=== PATIENT | male | born 1960 | race Caucasian/White ===

== ENCOUNTER → 2020-12-20 09:39 | Outpatient (BNVA) | payer MEDICARE, MEDICAID, SELFPAY | PROVIDERS: Family Provider Physician Assistant; PCP Physician Assistant Medical; Visit Provider Anesthesiology Pain Medicine | DX: G89.29 Other chronic pain (principal); M54.12 Radiculopathy, cervical region; M50.90 Cervical disc disorder, unspecified, unspecified cervical region; F17.210 Nicotine dependence, cigarettes, uncomplicated | CPT/HCPCS: 99205 ==

== ENCOUNTER 2021-01-15 15:10 | Outpatient (CLI) | payer MEDICARE, MEDICAID, SELFPAY ==
--- NOTE | 2021-01-15 15:26 | MR_ITS ---
WS: [id number] MRI CERVICAL SPINE NONCONTRAST TECHNIQUE: Sagittal T1, T2 and STIR imaging. Axial T2, gradient, and fiesta imaging. CLINICAL INFORMATION: M54.12 - Radiculopathy, cervical region COMPARISON: February 2010 FINDINGS: Normal cervical alignment. Mild/moderate central canal stenosis in the mid cervical spine C3-C5. Cord signal is normal. C2-C3: Mild left and no significant right foraminal narrowing. Mild facet arthropathy. Spinal canal i s patent. C3-C4: Mild disc osteophytic ridging. Mild central canal stenosis. Moderate left greater than right b fatimah foraminal narrowing. Moderate facet arthropathy. C4-C5: Mild disc osteophyte complex with central disc osteophyte protrusion. Moderate central canal s tenosis. Slight indentation on cervical cord. Moderate to severe bilateral bony foraminal narrowing w ith moderate facet arthropathy. C5-C6: Disc osteophyte complex with endplate ridging. Broad-based central disc osteophyte protrusion with indentation on the cervical cord and mild central canal stenosis. Moderate to severe right and m oderate left bony foraminal narrowing. Moderate facet arthropathy. C6-C7: Disc osteophyte complex with slight effacement of ventral thecal sac. Mild central canal steno sis. Moderate to severe bilateral bony foraminal narrowing with osteophytic ridging and facet arthrop athy. C7-T1: Mild disc osteophyte complex with endplate ridging. Spinal canal is patent. Mild bilateral bon y foraminal narrowing. Small amount of edema in the left C4-5 articulating facets and right C3-4 articulating facets with a small amount of periarticular edema likely inflammatory or degenerative. Visualized brain stem structures: Normal. Prevertebral soft tissues: Normal. MR/MR cervical spin wo con* [id number] IMPRESSION: 1. Mild to moderate central canal stenosis C3-C5 worse at C4-C5 with moderate central canal stenosis and slight indentation on the cervical cord. Cord signal remains normal. Central canal stenosis is progressed since 2009. 2. Multilevel moderate to severe bony foraminal narrowing worse at bilateral C 3-4, bilateral C4-5, and right C5-C6. 3. Small amount of synovitis in the right C3-4 and left C4-5 articulating face ts.
== END 2021-01-15 15:11 | disposition home or self-care (01) ==
LOC: RADWPI 15:16
PROVIDERS: PCP Physician Assistant Medical; Visit Provider Anesthesiology Pain Medicine
DX: M54.2 Cervicalgia (principal); M54.12 Radiculopathy, cervical region; M65.88 Other synovitis and tenosynovitis, other site; M48.02 Spinal stenosis, cervical region
CPT/HCPCS: 72141